=== PATIENT | female | born 1965 | race Caucasian/White ===

== ENCOUNTER → 2016-12-05 | Outpatient (CLI) | payer OTHER | LOC: KOH-I 14:32 | DX: M54.2 Cervicalgia (principal); M54.9 Dorsalgia, unspecified; R05 Cough; M47.816 Spondylosis without myelopathy or radiculopathy, lumbar region | CPT/HCPCS: 71020; 72050; 72070; 72110 ==

== ENCOUNTER → 2021-12-20 | Outpatient (CLI) | payer OTHER ==
[~2021-12-20] MED LIST: PHENERGAN 25 MG25 M1 PO; VENTOLIN HFA 66.7 GM INH; ZOFRAN4 MG PO
== END ==
LOC: KOH-I 12:54
DX: M54.2 Cervicalgia (principal); R05.9 Cough, unspecified; M54.6 Pain in thoracic spine; M54.50 Low back pain, unspecified; M47.812 Spondylosis without myelopathy or radiculopathy, cervical region; M47.816 Spondylosis without myelopathy or radiculopathy, lumbar region
CPT/HCPCS: 71046; 72040; 72070; 72100

== ENCOUNTER → 2022-02-23 | Outpatient (CLI) | payer OTHER | LOC: EMI 14:57 | DX: M51.36 Other intervertebral disc degeneration, lumbar region (principal); M48.061 Spinal stenosis, lumbar region without neurogenic claudication | CPT/HCPCS: 72148 ==